=== PATIENT | female | born 1980 | race Caucasian/White ===

== ENCOUNTER → 2016-12-04 | Outpatient (CLI) | payer OTHER | LOC: BRMIMAGING 09:35 | PROVIDERS: ATTEND Obstetrics & Gynecology | DX: Z12.39 Encounter for other screening for malignant neoplasm of breast (principal); N64.4 Mastodynia | CPT/HCPCS: 76641-PO; G0204 ==

== ENCOUNTER 2017-04-25 17:15 | Emergency (ER) | payer OTHER ==
[2017-04-25 17:31] VITALS: RESP 16
[2017-04-25] MEDS ORDERED: NS 500 ML IV ONE (17:31)
[2017-04-25] MEDS ORDERED: ONDANSETRON DISINTEGRATING 4 MG TAB PO ONE (17:32)
[2017-04-25] MEDS ORDERED: MECLIZINE HCL 25 MG TAB PO ONE (17:48)
[2017-04-25] MEDS ORDERED: METOCLOPRAMIDE 10 MG/2 ML VIAL IVP ONE (17:59)
--- NOTE | 2017-04-25 18:33 | EDPHY ---
H & P Stated Complaint: pt. 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 followed by nausea and vomiting. 30 go worsens with head movement. After vomiting she reports noticing a very mild headache that is 1/10 or less in intensity bilateral alevism location. She has never had these symptoms occur before. She fell while prior to the exercise with no recent illnesses. She was driven here by her for further evaluation. She vomited to 3 times prior to arrival and has ongoing nausea currently. ROS: Constitutional: No fevers recently. No fatigue. HEENT: No recent URI symptoms. She does report the brief diminished hearing in the right ear prior to the onset of the vertigo. The hearing quickly return to normal and since then she has had no ongoing ear symptoms including no tinnitus pain or hearing loss. Neuro: Minimal bilateral hand paresthesias since arrival here but no other numbness or tingling. No focal weakness. No visual changes. No confusion. Pulmonary: No shortness of breath. Cardiovascular: No chest pain or heart palpitations GI: No abdominal pain. No hematemesis or coffee-ground emesis Integumentary: No skin rash Source: Patient, Family (Her accompanies her) Exam Limitations: No limitations - Personal History LMP (Females 10-55): IUD In Place Tetanus Vaccine Date: 04/2014 - Medical/Surgical History Hx Asthma: No Hx Chronic Respiratory Disease: No Hx Diabetes: No Hx Cardiac Disease: No Hx Renal Disease: No Hx Cirrhosis: No Hx Alcoholism: No Hx HIV/AIDS: No Hx Splenectomy or Spleen Trauma: No Other PMH: Denies - Family History Significant Family History: No pertinent family hx, Other (No history of intracranial aneurysms, bleeding strokes or migraine). No: Vascular disease - Social History Smoking Status: Never smoked Alcohol Use: Occasionally Drug Use: None - Physical Exam Exam: Physical exam: Vital signs are normal General: Patient is in no acute distress. HEENT: Is no external evidence of trauma on exam. She has no cranial tenderness. Eyes: Pupils are equal and reactive to light. Extraocular motions are intact. Optic fundi: Clear with no papilledema or hemorrhage. Nose atraumatic. Ears: Clear bilaterally with no hemotympanum. Oropharynx: No dental trauma or malocclusion. No intraoral lacerations. Eyes: Pupils are equal and reactive to light. Extraocular motions are intact. Optic fundi: Clear with no papilledema or hemorrhage. Lungs: Clear to auscultation bilaterally Neck: Supple no meningismus. No posterior tenderness. Cardiac: Regular rate and rhythm no murmur gallop or rub. Abdomen: Soft nontender no organomegaly Neuro: GCS of 15. Cranial nerves II through XII intact. Cerebellar exam is normal as judged by symmetric rapid hand movements bilaterally. No pronator drift. No sensory or motor deficits are appreciated. She does have vertigo with head movement but not with extraocular motions. Initial differential diagnosis: Benign positional vertigo, atypical Migraine, tension headache, doubt vertebral artery dissection or aneurysm/sentinel bleed Constitutional: Initial Vital Signs Temperature (C) 37.0 C 04/25/17 17:27 Heart Rate 56 L 04/25/17 17:27 Respiratory Rate 16 04/25/17 17:27 Blood Pressure 101/51 L 04/25/17 17:27 O2 Sat (%) 98 04/25/17 17:27 O2 Delivery Mode Room Air Allergies/Adverse Reactions: No Known Allergies Allergy (Verified 04/25/17 17:26) Home Medications: Medication Instructions Recorded Meclizine HCl [Meclizine HCl 25 mg 25 mg PO TID PRN #20 tab 04/25/17 (RX,OTC)] Ondansetron Odt [Zofran Odt] 4 - 8 mg PO Q4PRN PRN #4 tab 04/25/17 Medical Decision Making - Diagnostics Imaging Results: CT head: Normal CT angio head and neck normal I discussed the studies with Dr. Torre-radiologist on for tonight. I also reviewed the images personally. Imaging: Discussed imaging studies w/ pushcart peddler Radiologist ED Course/Re-evaluation: Zofran ODT on arrival without complete resolution of nausea IV Reglan and Benadryl the and oral meclizine with a brief nap followed by resolution of headache, nausea and vomiting. On repeat examination the patient reports resolution of her symptoms and has no headache. I spoke with Dr. painting-neurologist collections technician regarding this patient-given the symptoms came on during exertion there is a consideration a very small chance of vertebral artery dissection intracranial aneurysm or bleed but given that her symptoms have entirely resolved we agree that this is very unlikely. The plan is to follow up tomorrow in Dr. huddleston office if she has any ongoing symptoms are concerning findings the will order neuro imaging from the office. At 9:15 p.m. the patient called our clinic explain that shortly after arriving home she developed tightness in the right posterior neck and pressure behind the right eye of [id number] intensity. Given these new symptoms I encouraged the patient to return for neuro imaging to rule out vertebral artery dissection, intracranial bleed or other intracranial pathology At 9:58 p.m. after returning to emergency department on repeat evaluation the patient reports right retro-orbital headache 2/10 intensity and right posterior neck pain 2/10 intensity. On repeat exam there are no changes. She still has no posterior neck tenderness no cranial tenderness GCS 15. I counseled patient regarding her normal CT head, CT angio head and neck. She is given Tylenol for headache She will follow up with Dr. painting-neurologist tomorrow for further evaluation. I think that she developed benign positional vertigo subsequently developed tension headache. I think the vomiting was secondary to benign positional vertigo. - Data Points Laboratory Results: Laboratory Results 04/25/17 Unknown 04/25/17 04/25/17 Unknown Unknown Sodium 138 mEq/L mEq/L (134-144) Potassium 3.8 mEq/L mEq/L (3.5-5.2) Chloride 101 mEq/L mEq/L (97-110) Carbon Dioxide 24 mEq/l mEq/l (22-31) Anion Gap 13 mEq/L mEq/L (8-16) BUN 15 mg/dL mg/dL (7-23) Creatinine 0.8 mg/dL mg/dL (0.6-1.0) Estimated GFR > 60 Glucose 103 mg/dL H mg/dL (70-100) Calcium 9.0 mg/dL mg/dL (8.5-10.4) Beta HCG, Qual NEGATIVE Medications Given: Discontinued Medications Diphenhydramine HCl (Benadryl Injection) 25 mg IVP EDNOW ONE Stop: 04/25/17 18:00 Last Admin: 04/25/17 18:18 Dose: 25 mg Sodium Chloride (Ns) 500 mls @ 1,000 mls/hr IV ONCE ONE PRN Reason: Protocol Stop: 04/25/17 18:00 Last Admin: 04/25/17 17:55 Dose: 500 mls Meclizine HCl (Meclizine Hcl) 25 mg PO EDNOW ONE Stop: 04/25/17 17:49 Last Admin: 04/25/17 18:21 Dose: 25 mg Metoclopramide HCl (Reglan Injection) 5 mg IVP EDNOW ONE Stop: 04/25/17 18:00 Last Admin: 04/25/17 18:21 Dose: 5 mg Ondansetron HCl (Zofran Odt) 4 mg PO EDNOW ONE Stop: 04/25/17 17:33 Last Admin: 04/25/17 17:40 Dose: 4 mg Departure - Departure Clinical Impression: Neck pain Benign positional vertigo Qualifiers: Laterality: unspecified laterality Qualified Code(s): H81.10 - Benign paroxysmal vertigo, unspecified ear Condition: Good Instructions: Benign Paroxysmal Positional Vertigo (ED) Additional Instructions: Diagnosis: Benign positional vertigo Plan: Meclizine for spinning sensation if needed Zofran for nausea or vomiting if needed Call Dr. painting-neurologist tomorrow at 9:00 a.m. to arrange for follow-up appointment for a recheck tomorrow (the will be able issue by 3:00 p.m. or sooner.) Return to the emergency department if you develops any significant worsening of symptoms despite the treatment plan or if he develops significant headache. Referrals: NONE *PRIMARY CARE P,. [Primary Care Provider] - As per Instructions Mika Shoemaker DO [Medical Doctor] - As per Instructions Prescriptions: Meclizine HCl [Meclizine HCl 25 mg (RX,OTC)] 25 mg PO TID PRN #20 tab PRN Reason: vertigo Ondansetron Odt [Zofran Odt] 4 - 8 mg PO Q4PRN PRN #4 tab PRN Reason: Vomiting
[2017-04-25 21:50] VITALS: O2SAT 97
[2017-04-25] MEDS ORDERED: IOPAMIDOL (ISOVUE 370) 100 ML BTL IV ONE (21:53)
[2017-04-25 21:57] LABS: ANION GAP 13 mEq/L (8-16); CARBON DIOXIDE 24 mEq/l (22-31); CHLORIDE 101 mEq/L (97-110); CREATININE 0.8 mg/dL (0.6-1.0); GLOMERULAR FILTRATION RATE > 60; GLUCOSE 103 mg/dL (70-100); POTASSIUM 3.8 mEq/L (3.5-5.2); SODIUM 138 mEq/L (134-144)
[2017-04-25] MEDS ORDERED: ACETAMINOPHEN 500 MG TAB PO ONE (23:26)
[2017-04-25 23:46] VITALS: BP 113/45; PULSE 54; TEMP 98.2
== END 2017-04-25 23:44 | disposition home or self-care (01) ==
LOC: CED 17:15
DX: H81.10 Benign paroxysmal vertigo, unspecified ear (principal); M54.2 Cervicalgia; E86.9 Volume depletion, unspecified
CPT/HCPCS: 70450-PO; 70496-PO; 70498-PO; 80048-PO; 84703-PO; 96374; J1200; J2765; Q9967

== ENCOUNTER → 2017-04-26 | Outpatient (CLI) | payer OTHER | LOC: FIMAGING 15:39 | PROVIDERS: ATTEND Psychiatry & Neurology Neurology | DX: H81.10 Benign paroxysmal vertigo, unspecified ear (principal) ==

== ENCOUNTER 2018-08-18 23:22 | Emergency (ER) | payer OTHER ==
[2018-08-18 23:32] VITALS: BP 124/75
--- NOTE | 2018-08-18 23:54 | EDPHY ---
H & P Time Seen by Provider: 08/18/18 23:38 HPI/ROS: Chief complaint: Can't stop coughing, ill for 3 weeks HPI: Previously healthy 38-year-old female 1st became sick approximately 3 weeks ago. She recounts fairly emphatically of a somewhat sudden abrupt sense of profound fatigue and illness along with a dry cough. She cannot recall if she had a fever. Some 3 days later she was able to get up in make the travels to [place] for the holidays. And she never really got better. She was seen Thomas Dent at a urgent care there, told that was a viral illness and would subside on its own. There is no influenza specific testing. Subsequently the cough persisted. At that point in time her children started becoming sick with the 4-year-old son being diagnosed with RSV on August 12. Subsequently the 5-year-old became sick and is doing okay, not need to be evaluated. She is here tonight because she is getting somewhat worse. The cough has been recalcitant to [id number] meds rigors including Mucinex and Benadryl. This evening, she was unable to sleep. When she would lay down the cough would come on and simply would not let her rest. It would be is if she could run out of her air. Furthermore there was some near post tussive vomiting. We have checked old records and indeed she had a Tdap in 2013. There are no reported Pertussis outbreaks in the state at this time. ROS: Constitutional - while she has had some chills she has not taken temperature reading. There been no sweats. Eyes - no discharge, or injection ENT - no earache, change in hearing, difficulty swallowing. Sore throat that was present at the very start has since subsided Respiratory - No Shortness of breath, wheezing or pleuritic chest pain. The cough is dry, for the most part, occasionally some yellow phlegm. Musculoskeletal - no joint or muscle pain. Integument - no rashes. Neurological - no headache, numbness, tingling, or paresthesias. No focal motor weakness. Immunological - no swelling or lymphadenopathy A 10 system review of systems was performed and is negative except for the noted findings in the HPI. Smoking Status: Never smoked Physical Exam: Gen: Well developed, well nourished. Nontoxic. She is coughing sporadically, but not in a staccato away nor with any postop is retching or emesis nor inability to speak due to the coughing afebrile VSS HEENT: Normocephalic. Ears: TMs are clear. Eyes: PERRL. No conjunctival injection or pallor. no jaundice. Nose: No nasal discharge. Sinuses are nontender. Throat: Membranes are moist. Oropharynx is without erythema or exudate. Normal phonation. Neck: Trachea is in the ML. No adenopathy Lungs: Good air entry into both lungs. Diminished breath sounds on un equal breath sounds left compared to right anteriorly. No rales rhonchi or wheezes. No air hunger. No respiratory distress. Skin: Good color, without pallor. There is no diaphoresis. Skin is warm and dry , without diaphoresis. Intact without rashes Constitutional: Initial Vital Signs Temperature (C) 36.9 C 08/18/18 23:27 Heart Rate 64 08/18/18 23:27 Respiratory Rate 16 08/18/18 23:27 Blood Pressure 124/75 H 08/18/18 23:27 O2 Sat (%) 96 08/18/18 23:27 O2 Delivery Mode Room Air Allergies/Adverse Reactions: No Known Allergies Allergy (Verified 08/18/18 23:26) Home Medications: Medication Instructions Recorded Azithromycin [Zithromax] 250 mg PO DAILY #6 tab 08/19/18 Benzonatate 200 mg PO TID PRN #28 capsule 08/19/18 Medical Decision Making ED Course/Re-evaluation: We discussed several issues at hand: Cough suppression-she will try Delsym DM or benzonatate-generic Tessalon Perles. She was given a dose of the latter here. Cough resolution over the next 2 weeks: Proventil 2 puffs 4 times a day. Originally I recommended a chest x-ray. The original week of illness sounded suspicious for influenza. Thereby as she is not getting any better in somewhat worse I was worried and remain worried were guarding post influenza pneumonia. We had a lengthy discussion, though however, she really does not want to go through the expense of the chest x-ray. She is aware of the limitations of my ability to tell about pneumonia. Thus we discussed going on Zithromax provisionally. Certainly the bronchitis could be on the basis of Moraxella catarrhalis Differential Diagnosis: Diagnostic considerations include, but are not limited to, the following: URI, sinusitis, pharyngitis, otitis media, pneumonia, allergy, influenza, strep throat. - Data Points Medications Given: Discontinued Medications Albuterol Sulfate (Proventil Inh Prepack) 1 mdi TAKEHOME EDNOW ONE Stop: 08/19/18 00:07 Last Admin: 08/19/18 00:20 Dose: 1 mdi Benzonatate (Tessalon Pearles) 200 mg PO EDNOW ONE Stop: 08/19/18 00:08 Last Admin: 08/19/18 00:14 Dose: 200 mg Departure - Departure Disposition: Home, Routine, Self-Care Clinical Impression: Bronchitis Condition: Good Instructions: Benzonatate (By mouth), Azithromycin (By mouth), Acute Bronchitis (ED), How to Use a Nebulizer (ED) Additional Instructions: For the COUGH: Delsym DM 4 tsp twice a day or Benzonatate (Rx) for the cough, no both Proventil Inhaler 4 times a day for 2 weeks. Consider the Antibiotic, ZITHROMAX, as we did not do the Chest Xray. Return if worse, or fever. See your doctor in a 5-7 days if not significantly better. Referrals: Patient,NotPresent [Primary Care Provider] - As per Instructions Prescriptions: Azithromycin [Zithromax] 250 mg PO DAILY #6 tab Benzonatate 200 mg PO TID PRN #28 capsule PRN Reason: Cough
[2018-08-19] MEDS ORDERED: ALBUTEROL INH PREPACK MDI TAKEHOME ONE (00:06)
[2018-08-19] MEDS ORDERED: BENZONATATE 100 MG CAP PO ONE (00:07)
== END 2018-08-19 00:23 | disposition home or self-care (01) ==
LOC: CED 23:22
DX: J40 Bronchitis, not specified as acute or chronic (principal)
CPT/HCPCS: 99284-ER